=== PATIENT | female | born 1960 | race Caucasian/White ===

== ENCOUNTER 2016-06-08 14:33 | Emergency (ER) | payer OTHER ==
[~2016-06-08] VITALS: Ht 167.6 cm; Wt 99.5 kg
[~2016-06-08 14:33] MED LIST: ESTR0.9T PO; HYDR1TAB69 PO; PRAZ5CAP2 PO; PROV5 PO; PROZAC20 M1 PO; TRAM100T2 PO; TRIA1CAP PO; WEL75 PO
[2016-06-08 14:37] VITALS: BP 140/91; PULSE 71; RESP 22; O2SAT 100
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
[2016-06-08 16:48] VITALS: BP 122/70; PULSE 65; RESP 16; O2SAT 99
[2016-06-08 19:44] VITALS: BP 126/77; PULSE 62; RESP 16; O2SAT 100
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
[2016-06-08 20:04] VITALS: BP 133/86; PULSE 75; RESP 16; O2SAT 99
[2016-06-08 21:29] VITALS: BP 142/86; PULSE 75; RESP 16; O2SAT 99
== END 2016-06-08 20:40 | disposition short-term general hospital (02) ==
LOC: EDBD 14:33 → EDUNIT# 14:33 → SED 14:33
DX: S13.4XXA Sprain of ligaments of cervical spine, initial encounter (principal); V67.5XXA Driver of heavy transport vehicle injured in collision with fixed or stationary object in traffic accident, initial encounter; Y93.89 Activity, other specified; Y92.410 Unspecified street and highway as the place of occurrence of the external cause; Y99.8 Other external cause status; R51 Headache; M25.511 Pain in right shoulder; M79.601 Pain in right arm; R20.0 Anesthesia of skin; R20.2 Paresthesia of skin; M79.7 Fibromyalgia; F41.9 Anxiety disorder, unspecified; Z88.1 Allergy status to other antibiotic agents; Z88.2 Allergy status to sulfonamides; Z88.5 Allergy status to narcotic agent